=== PATIENT | male | born 1995 | race Caucasian/White ===

== ENCOUNTER 2018-03-02 20:35 | Emergency (ER) | payer OTHER ==
[2018-03-02 21:16] VITALS: BP 130/82
[2018-03-02] MEDS ORDERED: OXYCODONE-ACETAMINOPHEN 5-325 MG TABLET PO ONE (21:20)
--- NOTE | 2018-03-02 21:27 | RADIOLOGY REPORT (SQ) ---
EXAM DESCRIPTION: ANKLE RIGHT COMPLETE COMPLETED DATE/TIME: 03/02/2018 9:20 pm REASON FOR STUDY: pain s/p injury COMPARISON: None. NUMBER OF VIEWS: Three views. TECHNIQUE: AP, lateral, and oblique radiographic images acquired of the right ankle. LIMITATIONS: None. FINDINGS: MINERALIZATION: Normal. BONES: No acute fracture or dislocation. No worrisome bone lesions. JOINTS: No effusions. SOFT TISSUES: No soft tissue swelling. No foreign body. OTHER: No other significant finding. IMPRESSION: NEGATIVE STUDY OF THE RIGHT ANKLE. NO RADIOGRAPHIC EVIDENCE OF ACUTE INJURY. TECHNICAL DOCUMENTATION: JOB ID: [id number] [employer]- All Rights Reserved Reading location - IP/workstation name: [email or web address]
--- NOTE | 2018-03-02 22:20 | ER Document Report ---
HPI - HPI Patient complains to provider of: Right ankle injury Pain Level: 4 Context: Patient is a 22-year-old male who is [employer] presents emergency department the chief complaint of right ankle injury. Patient states that he dropped a 135 pound lifting plate on his right ankle. States that it landed parallel on the top of his right foot and ankle. He admits to pain with range of motion. Did not take anything prior to arrival. Denies any numbness or tingling distally extremity. Worse with range of motion, ambulating. Otherwise healthy male - CONSTITUTIONAL Constitutional: DENIES: Fever, Chills - CARDIOVASCULAR Cardiovascular: DENIES: Chest pain - RESPIRATORY Respiratory: DENIES: Trouble Breathing, Coughing Past Medical History - Social History Smoking Status: Never Smoker Chew tobacco use (# tins/day): No Frequency of alcohol use: None Drug Abuse: None Family History: Reviewed & Not Pertinent Patient has suicidal ideation: No Patient has homicidal ideation: No Renal/ Medical History: Denies: Hx Peritoneal Dialysis Vertical Provider Document - CONSTITUTIONAL Agree With Documented VS: Yes Notes: PHYSICAL EXAM GENERAL: Alert, interacts well. EXTREMITIES: Tenderness over the anterior aspect of the right ankle and top of the right foot with evidence of bruising no obvious deformities.. Minimal localized edema, dorsalis pedis pulses 2/4 bilaterally. No cyanosis. NEUROLOGICAL: Alert and oriented x4. Normal speech. PSYCH: Normal affect, normal mood. SKIN: Warm, dry, normal turgor. Evidence of erythema/contusion along the anterior aspect of the ankle along the anterior tibia - INFECTION CONTROL TRAVEL OUTSIDE OF THE [place] IN LAST 30 DAYS: No Course - Re-evaluation Re-evalutation: 03/02/18 22:06 Patient is a 22-year-old male is hemodynamic stable, no acute distress. Presentation is consistent with contusion. No evidence of a septic joint, gout flare, dislocation, or fracture on exam and imaging. Vitals wnl. At this time, I do not see an indication for labs or further imaging. Will discharge with conservative measures, return precautions, and follow-up recommendations. - Vital Signs Vital signs: Temp Pulse Resp BP Pulse Ox 98.4 F 96 16 130/82 H 97 03/02/18 21:11 03/02/18 21:11 03/02/18 21:11 03/02/18 21:11 03/02/18 21:11 - Diagnostic Test Radiology reviewed: Image reviewed, Reports reviewed Procedures - Immobilization Right Ankle Pre-Proc Neuro Vasc Exam: Normal Immobilizer type: Ankle stirrup, Crutches Performed by: PCT Post-Proc Neuro Vasc Exam: Normal, Unchanged from pre-exam Alignment checked and good: Yes Discharge - Discharge Clinical Impression: Ankle injury Qualifiers: Encounter type: initial encounter Laterality: right Qualified Code(s): S99.911A - Unspecified injury of right ankle, initial encounter Condition: Good Disposition: HOME, SELF-CARE Instructions: Acetaminophen, Contusion ([facility]), Use of Crutches ([facility]), Use of Hrnu-Sbx-Pyskzis Ibuprofen ([facility]), Ice & Elevation ([facility]) Prescriptions: Tramadol HCl 50 mg PO BID #6 tablet Forms: Special Work Note
== END 2018-03-02 22:33 | disposition home or self-care (01) ==
LOC: ER 20:35
DX: S99.911A Unspecified injury of right ankle, initial encounter (principal); W20.8XXA Other cause of strike by thrown, projected or falling object, initial encounter
CPT/HCPCS: 99283; 73610; L1902